=== PATIENT | female | born 1960 | race Caucasian/White ===

== ENCOUNTER 2016-11-04 17:22 | Emergency (ER) | payer OTHER ==
[~2016-11-04] VITALS: Ht 175.3 cm; Wt 68.0 kg
[2016-11-04 17:36] VITALS: BP 128/73
--- NOTE | 2016-11-04 17:38 | ED HAND/WRIST INJURY COMPLAINT ---
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 LAST TETANUS:2-3 YEAR AGO. Triage Nurses Notes Reviewed? yes Occurred: just prior to arrival Duration: hour(s): (1), constant Timing: recent history Injury Environment: home Severity: moderate Severity Numbers: 5 Context: laceration Method of Injury: laceration No Modifying Factors: none Associated Symptoms: none HPI: 56 YEAR OLD FEMALE PRESENTS to the ER status post sustaining laceration to her left second finger just prior to arrival when she accidentally cut it when she put her hand in an immersion salesperson handbags prior to arrival. She denies any numbness or tingling to the finger she is right-hand dominant. Her last tetanus is up to date. She denies any difficulty with range of motion of the finger she denies any hand or wrist pain or injury she has not taken anything for symptoms and she is declining anything when offered. It is mild to moderate and aching nonradiating (OMID STARKS) Past History Travel History Traveled to [place] past 21 day No Medical History Any Pertinent Medical History? see below for history Neurological: NONE EENT: NONE Cardiovascular: INTERMITTENT PVC'S Respiratory: NONE Gastrointestinal: NONE Hepatic: NONE Renal: NONE Musculoskeletal: LYME X 3-4 Psychiatric: NONE Endocrine: NONE Blood Disorders: NONE Cancer(s): CERVICAL CA Surgical History Surgical History: non-contributory Psychosocial History What is your primary language [place] Tobacco Use: Never used ETOH Use: denies use Illicit Drug Use: denies illicit drug use Family History Hx Contributory? No (OMID STARKS) Review of Systems Review of Systems Constitutional: Reports: see HPI. All Other Systems: Reviewed and Negative Comments Review of systems: See HPI, All other systems negative. Constitutional, no chills no fever, no malaise no weight loss HEENT: No visual changes no sore throat no congestion, no ear pain Cardiovascular: No chest pain , no palpitation , no orthopnea no ankle swelling Skin, no jaundice no rashes, no change in skin Respiratory: No dyspnea no cough no sputum no hemoptysis GI: No nausea no vomiting, no diarrhea, no bloating/constipation : No dysuria No hematuria, no frequency, no discharge Muscle skeletal: No joint pain, no joint swelling, no back pain, no neck pain, Neurologic: No numbness no confusion, no headache Psych: No stress no anxiety no depression,. Heme/endocrine: No bruising no bleeding no polyuria no polydipsia Immunology: No lymphadenopathy, no splenectomy (OMID STARKS) Physical Exam Physical Exam General Appearance: well developed/nourished, alert, awake Hand Left: 2nd finger Hand Right: normal inspection, normal range of motion Comments: Well-developed well-nourished patient in no apparent distress. HEENT: Atraumatic, extraocular motion intact Neck: Supple, FROM Back: FROM Cardiovascular: Regular rate and rhythms Respiratory: No respiratory distress. Patient speaking in full complete sentences. Breath sounds clear to auscultation bilaterally: NO W/R/R Shoulder: Atraumatic/Stable. FROM . Elbow: Atraumatic/stable. FROM. No laxity Upper arm/Forearm: Atraumatic. Nontender. No edema, 5 out of 5 pencil maker strength noted to bilateral upper extremities Hand/Wrist: There is a 0.5 cm superficial laceration over the palmar distal aspect of the left second finger as well as a 1 cm superficial linear laceration noted over the distal dorsal aspect of the left second finger just proximal to the nail, there is no nailbed involvement, full sensation Refill within normal limits FROM Pulses: Normal/equal radial pulses bilaterally. Brisk cap refill Lower Extremities: full range of motion Neuro: Alert and oriented x3 Skin: Warm & dry;No appreciable rash on exposed skin Psych: Mood affect normal, normal memory normal judgment. (OMID STARKS) Progress Differential Diagnosis: cellulitis, contusion, compartment syndrome, dislocation , fracture, sprain Plan of Care: After verbal consent was obtained the wound was thoroughly irrigated with normal saline Betadine and peroxide. Dermabond, SURGICEL AND STERILE DRESSING APPLIED. She tolerated procedure well and there was no bleeding observed advised need and concerned to look out for signs of infection the possibility deep tendon injury still exists. I answered all their questions they feel comfortable plan cleared for discharge (OMID STARKS) Departure Departure Time of Disposition: 1758 Disposition: HOME OR SELF CARE Condition: Stable Clinical Impression Primary Impression: Finger laceration Referrals: MAO RICHARDSON,MIRACLE Mcneill Additional Instructions: KEEP DRESSING IN PLACE X 2 DAYS. BACITRACIN OR NEOSPORIN AT THAT TIME DAILY. OBSERVE FOR SIGNS OF INFECTION: REDNESS, WARMTH, SWELLING, DISCHARGE FEVER OR CHILLS Departure Forms: Customer Survey General Discharge Information Prescriptions: Current Visit Scripts No Known Home Medications (OMID STARKS) PA/[employer]OT[employer]ICE [employer]TER Co-Sign Statement Statement: ED Attending supervision documentation- [] I saw and evaluated the patient. I have also reviewed all the pertinent lab results and diagnostic results. I agree with the findings and the plan of care as documented in the PA's/AUTOMOTIVE SERVICE PORTER's documentation. [X] I have reviewed the ED Record and agree with the PA's/AUTOMOTIVE SERVICE PORTER's documentation. [] Additions or exceptions (if any) to the PAs/AUTOMOTIVE SERVICE PORTER's note and plan are summarized below: [] (KANG SAUER DO) Procedures Laceration/Wound Repair Laceration/Wound Repair: Wound Location: upper extremity Wound's Depth, Shape: linear, superficial Wound Length (cm): 1.5 Wound Explored: clean, no foreign body removed, irrigated extensively Irrigated w/ Saline (ccs): 200 Betadine Prep? Yes Wound Repaired With: Dermabond Layer Closure? No Sterile Dressing Applied: Yes Tetanus Status: up to date (OMID STARKS)
== END 2016-11-04 18:15 ==
LOC: ERH 17:22
DX: S61.211A Laceration without foreign body of left index finger without damage to nail, initial encounter (principal); W27.8XXA Contact with other nonpowered hand tool, initial encounter